=== PATIENT | male | born 1960 | race Caucasian/White ===

== ENCOUNTER → 2018-02-23 | Outpatient (CLI) | payer BC ==
[~2018-02-23] MED LIST: ALLO300; CHLO2; CIPR500; GUAPHELA PO; OMEP20ER; RXHYDACE PO; TOBR.3OPSO OP
== END | disposition home or self-care (01) ==
LOC: LAB SHORT 14:16 → PLD 14:16
DX: D48.5 Neoplasm of uncertain behavior of skin (principal)
CPT/HCPCS: 88305

== ENCOUNTER → 2018-03-23 | Outpatient (CLI) | payer BC | END | disposition home or self-care (01) | LOC: LAB SHORT 13:52 → PLD 13:52 | DX: C44.629 Squamous cell carcinoma of skin of left upper limb, including shoulder (principal) | CPT/HCPCS: 88305 ==

== ENCOUNTER 2024-06-07 11:18 | Day surgery (SDC) | payer MEDICARE ==
[~2024-06-07] VITALS: Ht 167.6 cm; Wt 139.8 kg
[~2024-06-07 11:18] MED LIST changes: +Lactated Ringer's 1,000 ML IV ONE
[2024-06-07] MEDS ORDERED: LISI10 (11:48)
[2024-06-07] MEDS ORDERED: ALBU90OI (11:48)
[2024-06-07] MEDS ORDERED: Crestor40 MG (11:49)
[2024-06-07] MEDS ORDERED: Lactated Ringer's 1,000 ML IV ONE (12:41)
[2024-06-07] MEDS ORDERED: propofoL 50 ML IV ONE ×2 (13:23→13:46)
[2024-06-07 14:42] VITALS: BP 128/81
== END 2024-06-07 14:48 | disposition home or self-care (01) ==
LOC: ORSCSDS 11:18
PROVIDERS: Surgery
PROC: 0DBN8ZX Excision of Sigmoid Colon, Via Natural or Artificial Opening Endoscopic, Diagnostic (ICD-10-PCS; principal; 2024-06-07 13:00)
PROC: 0DBL8ZX Excision of Transverse Colon, Via Natural or Artificial Opening Endoscopic, Diagnostic (ICD-10-PCS; principal; 2024-06-07 13:00)
DX: Z12.11 Encounter for screening for malignant neoplasm of colon (principal); D12.3 Benign neoplasm of transverse colon; D12.5 Benign neoplasm of sigmoid colon; Z80.0 Family history of malignant neoplasm of digestive organs; Z86.0101 Personal history of adenomatous and serrated colon polyps; G47.33 Obstructive sleep apnea (adult) (pediatric); I10 Essential (primary) hypertension; E66.01 Morbid (severe) obesity due to excess calories; Z68.42 Body mass index [BMI] 45.0-49.9, adult; Z85.118 Personal history of other malignant neoplasm of bronchus and lung; Z79.899 Other long term (current) drug therapy; F17.210 Nicotine dependence, cigarettes, uncomplicated
CPT/HCPCS: 88305; J2704; J7120

== ENCOUNTER → 2025-03-30 | Outpatient (CLI) | payer MEDICARE ==
[~2025-03-30] MED LIST changes: +ALBU90OI; +Crestor40 MG; +LISI10; -Lactated Ringer's 1,000 ML IV ONE
[2025-03-30 19:41] LABS: Creatinine, Urine Random 157.0 mg/dL (27.00-270.00); Microalb/Creat Ratio UR, Rand 24.013 mg/g (0.000-30.000); Microalbumin, Random Urine 37.7 mg/L (0.000-20.000)
== END ==
LOC: LAB 13:07 → LAB SHORT 13:07
PROVIDERS: Family Medicine
DX: E11.9 Type 2 diabetes mellitus without complications (principal)
CPT/HCPCS: 82043; 82570